=== PATIENT | female | born 1965 | race Caucasian/White ===

== ENCOUNTER 2016-08-10 04:24 | Emergency (ER) | payer OTHER ==
[2016-08-10 01:01] LABS: BASOPHILS 0.1 %; BASOPHILS ABSOLUTE 0.01 10/3/uL (0.0-0.16); EOSINOPHILS 0.9 %; EOSINOPHILS ABSOLUTE 0.08 10/3/uL (0.0-0.53); ER CBC TAT 0 Hrs 07 Mins; HEMATOCRIT 41.8 % (36.0-48.0); HEMOGLOBIN 14.5 g/dL (12.0-16.0); IMMATURE GRANULOCYTES 0.2 %; IMMATURE GRANULOCYTES ABSOLUTE 0.02 10/3/uL (0.0-0.11); LYMPHOCYTES 25.5 %; LYMPHOCYTES ABSOLUTE 2.31 10/3/uL (0.67-4.30); MEAN CORPUS HGB CONC 34.7 g/dL (32.0-36.0); MEAN CORPUSCULAR HEMOGLOB 31.2 pg (26.0-34.0); MEAN CORPUSCULAR VOLUME 89.9 fL (80-100); MEAN PLATELET VOLUME 9.4 fL (9.2-13.0); MONOCYTES 5.3 %; MONOCYTES ABSOLUTE 0.48 10/3/uL (0.21-1.20); NEUTROPHILS ABSOLUTE 6.16 10/3/uL (2.02-8.40); PLATELET COUNT 254 10/3/uL (150-400); RBC DISTRIBUTION WIDTH 12.4 % (12.0-16.0); RED CELL COUNT 4.65 10/6/uL (4.0-5.6); WHITE BLOOD CELLS 9.1 10/3/uL (4.5-10.5)
[2016-08-10 01:02] LABS: MANUAL DIFF NO %
[2016-08-10 01:08] LABS: PROTIME (NOT ORD) 12.7 SEC (12.0-14.5)
[2016-08-10 01:09] LABS: PARTIAL THROMBO TIME 24.1 SEC (22.5-37.2)
[2016-08-10 01:23] LABS: CALCIUM, SERUM 9.2 MG/DL (8.5-10.4); CHEST PAIN PROFILE TAT 0 Hrs 29 Mins; CHLORIDE, SERUM 106 MMOL/L (96-112); CO2 (CARBON DIOXIDE) 30 MMOL/L (24-34); CREATININE 0.68 MG/DL (0.55-1.02); GFR AFRICAN AMERICAN 117 ML/MIN (>=60); GFR NON AFRICAN AMERICAN 101 ML/MIN (>=60); GLUCOSE, SERUM 109 MG/DL (60-99); POTASSIUM, SERUM 3.6 MMOL/L (3.5-5.3); SODIUM, SERUM 141 MMOL/L (135-148); TROPONIN I <0.02 NG/ML (<0.05)
[2016-08-10 01:24] LABS: BUN (BLOOD UREA NITROGEN) 13 MG/DL (6-23)
[2016-08-10 03:11] LABS: C-REACTIVE PROTEIN < 2.9 MG/L (<8.0)
[2016-08-10 03:52] LABS: SED RATE 2 MM/HR (0-20)
[~2016-08-10 04:24] MED LIST: *DENIES; ALEVE220 MG PO; ASABAYER PO; BEN25 PO; DSS PO; MAGNESIUM OTC PO; MYTAB GAS80 MG PO; PCET PO; T PO; VIVELLE SY0.1 MG/24 TOP
[2016-08-21] MEDS ORDERED: P20 PO (11:26)
[2016-08-21] MEDS ORDERED: BEN25 PO (11:27)
[2016-08-21] MEDS ORDERED: FISH-EPA1000 MG PO (11:28)
[2016-08-28] MEDS ORDERED: DSS PO (09:16)
[2016-08-28] MEDS ORDERED: VITAMIN C PO (09:21)
[2016-08-28] MEDS ORDERED: VITAMIN D31000 UNIT PO (09:22)
[2016-08-28] MEDS ORDERED: FISH FLAX PO (09:26)
[2016-08-28] MEDS ORDERED: BORAGE PO (09:26)
[2016-08-28] MEDS ORDERED: SALMON OIL PO (09:28)
[2016-08-28] MEDS ORDERED: SUPER B COMP PO (09:29)
[2016-08-28] MEDS ORDERED: BIOTIN10 MG PO (09:30)
[2016-08-28] MEDS ORDERED: MAG OXIDE250 MG PO (09:31)
[2016-08-28] MEDS ORDERED: CALCIUM,MG,ZINC PO (09:33)
[2016-08-28] MEDS ORDERED: TURMERIC/CURCUMIN PO (09:35)
[2016-08-28] MEDS ORDERED: MCZ25 PO (09:36)
[2016-09-08] MEDS ORDERED: P10 (12:42)
== END 2016-08-10 05:05 | disposition home or self-care (01) ==
LOC: ER 04:24
PROVIDERS: Specialist
DX: R51 Headache (principal); Z79.899 Other long term (current) drug therapy; Z79.82 Long term (current) use of aspirin
CPT/HCPCS: 70450; 71020; 80048; 83735; 84484; 85025; 85610; 85652; 85730; 86140; 93005; 99285; J2405